=== PATIENT | female | born 1945 | race Caucasian/White ===

== ENCOUNTER 2025-03-19 13:04 | Outpatient (REF) | payer BC, MEDICAID, SELFPAY ==
--- OUTSIDE RECORDS SUMMARY | 2025-03-19 18:58 | XMS_ITS | Clinical Summary ---
Author Organization [facility] Address [address] [place] [address] Phone Care Team Providers Care Senior Information Security Engineer Name Role Phone Unavailable Primary Care Provider Unavailabl e Social History Tobacco Use Types Packs/Day Years Used Date Smoking Tobacco: Never Assessed Education Answer Date Recorded Are you interested in more education? Not on charles e 08/03/2022 Are you concerned about learning? Not on file 08/03/2022 No 08/03/2022 No 08/03/2022 Digital Access Answer Date Recorded No 09/01/2022 No 09/01/2022 No 09/01/2022 Reliable internet access at home? Not on file 09/01/2022 Device with a working camera? Not on file Comments Unknown Sex and Gender Information Value Date Recorded Sex Assigned at Not on file Legal Sex Female 5:38 PM EDT Gender Identity Not on file Sexual Orientation Not on file Plan of Treatment Health Maintenance Due Date Last Done Comments LIPID PANEL 1944 DEPRESSION SCREENING 1956 SMOKING Hx and SMOKELESS TOBACCO SCREENING 1957 ZOSTER VACCINES (1 of 2) 1994 OSTEOPOROSIS SCREENING INITIAL (ONE-TIME) 2009 RSV VACCINE (1 - 1-dose 75+ series) 07/23/2019 Adult Td,Tdap Booster 03/24/2022 03/24/2012 INFLUENZA VACCINE (#1) 2024 0, 01/27/2019, 04/15/2018, Additional history exists COVID-19 VACCINE (2 - 2024- season) 2024 07/19/2020 PNEUMOCOCCAL VACCINES (50+ years) Completed 06/20/2017, 07/26/2014 HEPATITIS A VACCINES Aged Out No long er eligible based on patient's age to complete this topic HIB VACCINES Aged Out No longer eligi ble based on patient's age to complete this topic MENINGOCOCCAL VACCINES (ACWY) Aged Out No longer eligible based on patient's age to complete this topic MENINGOCOCCAL VACCINES (B) Aged Out N o longer eligible based on patient's age to complete this topic Medical Devices Not on file Insurance MEDICARE PART A & B MEDICARE PART A & B MEDICARE PART A & B MEDICARE PART A & B MEDICARE PART A & B MEDICARE PART A & B MEDICARE PART A & B MEDICARE PART A & B MEDICARE PART A & B Additional Source Comments The information contained in this document represents components of the legal health record. It is not the complete legal health record.[facility]
== END 2025-03-19 13:05 | disposition home or self-care (01) ==
LOC: HO.HPHYSR 13:04
PROVIDERS: PCP Internal Medicine; Visit Provider Physical Medicine & Rehabilitation
DX: M53.3 Sacrococcygeal disorders, not elsewhere classified (principal); M46.1 Sacroiliitis, not elsewhere classified
CPT/HCPCS: 27096; J2003; J3301; Q9967

== ENCOUNTER 2025-03-19 13:04 | Outpatient (AMB) | payer BC, MEDICAID, SELFPAY ==
--- NOTE | 2025-03-19 13:19 | A.PHYSOV ---
Vital Signs 03/19/25 13:20 Height 5 ft 3 in Weight 188 lb BMI 33.3 BP 112/69 Pulse 60 Temp 98.2 F Intake Visit Reasons: Right Sacroiliac Joint Injection Intake Note: Patient is a 79 year old female in office today for a right sacroiliac joint injection. Supervisor Body Assembly Required: Yes Supervisor Body Assembly Services: Supervisor Body Assembly Offered & Declined Information Interpreted: non-clinical & clinical Allergies carbamazepine Allergy (Unknown, Verified 03/15/25 14:28) Unknown codeine Allergy (Unknown, Verified 03/15/25 14:28) Unknown lisinopril Allergy (Unknown, Verified 03/19/25 13:17) Unknown PFSH Medical History (Updated 03/19/25 @ 13:30 by Michi Soto DO) Sacroiliac inflammation Sacroiliac dysfunction Pacemaker Surgical History (Updated 03/19/25 @ 13:25 by Nury Omalley MA) History of coronary artery stent placement H/O cardiac ablation History of total right knee replacement (TKR) History of total left knee replacement (TKR) Hx of hysterectomy Hx of foot surgery Hx of colonoscopy Hx of cholecystectomy History of surgery Hx of left breast biopsy Family History (Updated 12/13/21 @ 17:01 by Garry Donis Damon) Mother Breast cancer Social History (Updated 03/19/25 @ 13:24 by Nury Omalley MA) Alcohol intake: current Alcohol intake frequency: holidays/special occasions only Patient Tobacco Use Status: Never used Tobacco Tobacco use type: Cigarette Use of substances other than those prescribed or required for medical reasons: No Current occupational status: retired Physical Exam Vital Signs: Last Vital Signs Temp 98.2 F 03/19/25 13:20 Pulse 60 03/19/25 13:20 BP 112/69 03/19/25 13:20 BMI result Body Mass Index 33.3 Office Procedures AMB Sacroiliac Joint Injection AMB Sacroiliac Joint Injection Procedure Details: Procedure performed: Right sacroiliac joint injection Preop diagnosis: SI joint mediated pain, sacroiliitis Postop diagnosis: The same Anesthesia: Local After informed consent was obtained patient was brought into the procedure room and placed in prone position on the procedure table. Skin over lumbar sacral area was prepped and draped in the usual sterile manner. The inferior portion of the right sacroiliac joint was visualized utilizing fluoroscopy. 3.5 in 22 gauge spinal needle was introduced percutaneously and advanced into the joint. Needle placement was verified utilizing 0.5 cc of Omnipaque contrast solution. 2.5 cc of therapeutic solution containing 40 mg of triamcinolone and 2% lidocaine was injected after negative aspiration for blood. The C-arm was obliqued about 30? in the contralateral direction an area just medial the proximal portion of the sacroiliac joint was visualized. 3.5 in 22 gauge spinal needle was introduced percutaneously and advanced to enter the area. Once in place, needle placement was identified utilizing 1 cc of Omnipaque contrast solution. Total volume of 2.5 cc containing 40 mg of triamcinolone and 2% lidocaine was injected to block the lateral branches at the sacroiliac ligament. Radiation exposure was documented in the chart. Sacroiliac Joint Injections [id number] - use with FL Gd order: Right All charges added?: Procedure code (CPT) selection complete Office Meds Kenalog 40 mg/mL suspension for injection Performing Provider: Michi Soto DO Performing Location: [facility] Administered by: Michi Soto DO on 03/19/25 13:58 Dose Route Admin Location Dispensed Lot Number Expiration Date [facility] [employer] 80 mg intra-articular 2 mL [id number] [employer] Total Dispensed Waste 2 mL 0 % lidocaine (PF) 20 mg/mL (2 %) injection solution Performing Provider: Michi Soto DO Performing Location: [facility] Administered by: Michi Soto DO on 03/19/25 13:58 Dose Route Admin Location Dispensed Lot Number Expiration Date [facility] [employer] 120 mg intra-articular 10 mL [id number] [employer] Total Dispensed Waste 10 mL 40 % Omnipaque 300 300 mg iodine/mL intravenous solution Performing Provider: Michi Soto DO Performing Location: [facility] Administered by: Michi Soto DO on 03/19/25 13:58 Dose Route Admin Location Dispensed Lot Number Expiration Date [facility] [employer] 3 mL intra-articular 10 mL [id number] [employer] Total Dispensed Waste 10 mL 70 % Assessment & Plan Assessment & Plan (1) Sacroiliac dysfunction: Code(s): M53.3 - Sacrococcygeal disorders, not elsewhere classified Category: Medical Plan: Procedure (2) Sacroiliac inflammation: Code(s): M46.1 - Sacroiliitis, not elsewhere classified Category: Medical Plan: Procedure Plan Procedure Orders: Orders FL Guided Sacroiliac Jt Inj RT Today M46.1 - Sacroiliitis, not elsewhere classified, M53.3 - Sacrococcygeal disorders, not elsewhere classified AMB Sacroiliac Joint Injection Today M46.1 - Sacroiliitis, not elsewhere classified, M53.3 - Sacrococcygeal disorders, not elsewhere classified Coding Level of Care Code Procedure Only Diagnoses Sacroiliac dysfunction M53.3 Sacroiliac inflammation M46.1 CPT Codes AMB Sacroiliac Joint Injection - Hip intraarticular Injection - : Right ([id number])
[2025-03-19 13:20] VITALS: BP 112/69; PULSE 60; TEMP 36.8; BMI 33.3
--- OUTSIDE RECORDS SUMMARY | 2025-03-19 18:43 | XMS_ITS ---
Author Name [facility] Organization Unknown Care Team Organization Name Specialty Phone Email Start Date End Da te [facility] Termed, PROVIDER Primary Care 02/13/202211/06
--- OUTSIDE RECORDS SUMMARY | 2025-03-19 18:43 | XMS_ITS | Clinical Summary ---
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 Active latanoprost (XALATAN) 0.005 % ophthalmic solution 09/19/19 22 Active levETIRAcetam (KEPPRA) 500 mg tablet Take 1.5 tablets (750 mg total) by mouth 2 (two) times a day. Take 1 Tablet by mouth 2 times daily. 03/15/20 23 Active loratadine (CLARITIN) 10 mg tablet Take 1 Tablet by mouth daily. Active spironolactone (ALDACTONE) 25 mg tablet Take 1 Tablet by mouth daily. Active dmzmbiyc-bdx-i corey-FA-vit K-lut (Centrum Silver Women) 8 mg iron-400 mcg-50 mcg tablet Take by mouth daily. Active calcium carbonate/marcos min D3 (CALCIUM 500 + D ORAL) Take 1 Tablet by mouth 2 times daily. 01/08/20 23 Active lancets 30 gauge misc Use to test blood sugar once daily. 200 each 2 02/14/20 24 Active magnesium oxide (MAG-OX) 400 mg magnesium tablet Take 1 tablet (400 mg total) by mouth 1 (one) time each day. Take 1 Tablet by mouth daily. - Oral 90 tablet 1 02/14/20 24 Active valsartan (DIOVAN) 80 mg tablet Take 1 tablet (80 mg total) by mouth 2 (two) times a day. Active OneTouch Ultra Test test strip USE TO CHECK BLOOD SUGAR ONCE DAILY 100 strip 3 07/01/19 25 Active Attruby 356 mg tablet Take 714 mg by mouth 1 (one) time each day. 08/25/19 25 Active Farxiga 10 mg tablet Take 1 mg by mouth 1 (one) time each day. Active furosemide (LASIX) 20 mg tablet Take 1 tablet (20 mg total) by mouth 1 (one) time each day if needed. Active Lactobac no.21-Bifidoba c no.9 (Probiotic [employer]) 30 billion cell capsule Take by mouth. Active inulin (Fiber Gummies) 2 gram tablet,chewabl e Chew. Active apixaban (ELIQUIS) 5 mg tablet Take 1 tablet (5 mg total) by mouth 2 (two) times a day. Take 1 Tablet by mouth 2 times daily. 180 tablet 1 08/29/19 25 Active sertraline (ZOLOFT) 50 mg tablet Take 1 tablet (50 mg total) by mouth 1 (one) time each day. TAKE 1 TABLET DAILY 90 tablet 1 09/29/19 25 Active albuterol HFA (PROAIR HFA ; PROVENTIL HFA ; VENTOLIN HFA) 90 mcg/actuation inhaler Inhale 2 puffs by mouth every 6 (six) hours if needed for wheezing or shortness of breath. 8.5 g 2 11/26/19 25 Active loperamide (Imodium A-D) 2 mg tablet Take 1 tablet (2 mg total) by mouth 3 (three) times a day if needed for diarrhea. 30 tablet 2 11/26/19 25 Active atorvastatin (LIPITOR) 40 mg tablet Take 1 tablet (40 mg total) by mouth 1 (one) time each day. TAKE 1 TABLET DAILY 90 tablet 1 11/26/19 25 Active dicyclomine (BENTYL) 10 mg capsule TAKE 1 CAPSULE (10 MG TOTAL) BY MOUTH 4 TIMES A DAY NEEDED ABDOMINAL PAIN OR CRAMPS 120 capsule 5 01/06/20 25 Active bisoprolol (ZEBETA) 5 mg tablet Take 1 tablet (5 mg total) by mouth 1 (one) time each day. Active omeprazole (PriLOSEC) [address] capsule Take 1 capsule (20 mg total) by mouth 1 (one) time each day. 90 capsule 1 01/05/20 Active semaglutide (OZEMPIC) 0.25 mg or 0.5 mg (2 mg/3 mL) injection penIndications :Type 2 diabetes mellitus with diabetic microalbuminur ia, without long-term current use of insulin ([facility] V24, [facility] V28),Obesity (BMI 30.0-34.9),AUGIE (obstructive sleep apnea) Inject 0.25 mg under the skin every 7 (seven) days. 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, without long-term current use of insulin 06/14/2024 Moderate aortic stenosis 06/14/2024 Stage 3a chronic kidney disease 06/14/2024 Hypomagnesemia 02/14/2024 Hepatic cyst 02/14/2024 Anxiety and depression 01/08/2024 GERD (gastroesophageal reflux disease) Hypertension 01/08/2024 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 05/17/2023 Palpitations 05/17/2023 Type 2 diabetes mellitus wit hout complication, without long-term current use of insulin 05/17/2023 Atrial fibrillation 06/28/2022 Chronic systolic CHF (congestive heart failure) 06/28/2022 Osteopenia 06/28/2022 Obesity (BMI 30.0-34.9) 10/21/2021 Type 2 diabetes mellitus with obesity 05/22/2021 Overview (01/06/2025): 01/06/25 Regulatory IMO Update PEDRO (generalized anxiety disorder) 05/26/2020 Mild intermittent asthma without complication Rheumatoid factor positive 03/19/2018 Prediabetes 09/04/2017 Overview (01/08/2024): Lab Results Component Value Date HGBA1C 6.4 05/27/2020 HGBA1C 6.4 07/28/2018 HGBA1C 6.1 07/02/2017 HGBA1C 6.1 03/28/2015 Coronary artery disease stat us post coronary stent insertion 12/14/2013 Overview (01/08/2024): Presented with exertional chest pain, abnormal stress test. Cath 2013 - CAD, s/p JC to mid-LAD Fibroadenoma of left breast 05/27/2012 Overview (01/08/2024): Fibroadenoma on bx ; mammo 04/2013 normal Hyperlipidemia 06/14/2010 Headache 06/13/2010 Seizure disorder 03/24/2010 LBBB (left bundle branch block) 01/16/2010 Encounters Date Type Department Care Team Description 01/04/2025 12:45 PM EDT Office Visit [address] [phone] Roe Villa MD Coronary artery disease status post coronary stent insertion (Primary Dx); Longstanding persistent atrial fibrillation (CMS/HCC V24, CMS/HCC V28); Chronic heart failure with preserved ejection fraction (HFpEF) (CMS/HCC V24, CMS/HCC V28); Cardiac amyloidosis (CMS/HCC V24, CMS/HCC V28); Moderate aortic stenosis; Mild intermittent asthma without complication; Type 2 diabetes mellitus with diabetic microalbuminuria, without long-term current use of insulin (CMS/HCC V24, CMS/HCC V28); Seizure disorder (CMS/HCC V24, CMS/HCC V28); Anxiety and depression; Irritable bowel syndrome with diarrhea; Obesity (BMI 30.0-34.9); AUGIE (obstructive sleep apnea); Screening for thyroid disorder 12/31/2024 Telephone Adult Medicine [address] [phone] Roe Villa MD from Last 3 Months Immunizations Immunization Administration Dates Next Due Influenza trivalent, 0.5mL ( Fluad) 65yo and older 01/04/2025 Influenza trivalent, 0.5mL ( Fluzone High-dose) 65yo and older 01/24/2023,01/12/2020,01/27/2019 Influenza trivalent, with pr eservative (Fluzone; Afluria) 6mo and older 02/14/2016,02/13/2015,01/11/2014,03/24,12/27/2010 Pneumococcal conjugate 13 va lent (Prevnar 13, PCV13) 2mo and older 06/20/2017 Pneumococcal conjugate 20 va lent (Prevnar 20, PCV 20) 2mo and older 02/14/2024 Pneumococcal polysaccharide 23 valent (Pneumovax 23) 2yo and older 07/26/2014 Td Tetanus diptheria (Tdvax) 7yo and older 10/17/2021,03/24/2012 Surgical History Surgery Date Site/Laterality Comments TOTAL KNEE ARTHROPLASTY 2004 Left PROCEDURE: HISTORICAL TOTAL KNEE REPLACE CHOLECYSTECTOMY PROCEDURE: HISTORICAL CHOLECYSTECTOMY FOOT SURGERY PROCEDURE: HISTORICAL FOOT SURGERY HYSTERECTOMY PROCEDURE: HISTORICAL HYSTERECTOMY OTHER SURGICAL HISTORY 2006 PROCEDURE: OR ESOPHAGOSCOPY FLEXIBLE TRANSORAL WITH BIOPSY TOTAL KNEE ARTHROPLASTY 01/2010 Right PROCEDURE: OR ARTHRP KNE CONDYLE&PLATU MEDIAL&LAT COMPARTMENTS; COMMENT: right knee COLONOSCOPY 2006 PROCEDURE: HISTORICAL COLONOSCOPY BREAST BIOPSY 2012 Left PROCEDURE: BX BREAST; PERC NEEDLE CORE W/IMAG GUID; COMMENT: b9 Medical History Medical History Date Comments Historical Medical DX DX:H/O: CV A (cardiovascular accident); COMMENT: no residual deficit Hypertension DX:Hypertension Depression DX:Depression Historical Medical DX DX:Gastric ulcer, unspecified as acute or chronic, without mention of hemorrhage or perforation GERD (gastroesophageal reflux disease) DX:GERD (gastroesophageal reflux disease) Arthritis DX:Arthritis Prediabetes 09/04/2017 DX:Prediabetes Rheumatoid factor positive 03/19/2018 DX:Rh eumatoid factor positive Family History Medical History Relation Name Comments Breast cancer Aunt m 65 Breast cancer Mother 58 Breast cancer Other Relation Name Status Comments Aunt m 65 Father HTN, Cerebral A neurysm Maternal Grandfather Alzheim er's Mother 58 Breast Ca, DM I I, HTN Other Sister Alive DM II Social History Tobacco Use Types Packs/Day Years Used Date Smoking Tobacco: Never Smokeless Tobacco: Never Alcohol Use Standard Drinks/Week Comments Yes 0 (1 standard drink = 0.6 oz pur e alcohol) Housing Instability Answer Date Recorde d Are you worried that in the next 2 months you may not have stable housing? No 08/14/2024 Food Access & Nutrition Answer Date Rec orded Do you have access to a vari ety of food including fruits and vegetables? Yes 08/14/2024 Access to Healthcare Answer Date Record ed Within the last 3 months, ho w many times did you visit the emergency department for your medical care? 1 08/14/2024 Health Literacy Answer Date Recorded How often do you need to hav e someone help you when you read instructions, pamphlets, or other written material from your doctor or pharmacy? Rarely 08/14/2024 Caregiver: How often do you need to have someone help you when you read instructions, pamphlets, or other written material from your doctor or pharmacy? Not on file 08/14/2024 Financial Risk Answer Date Recorded How hard is it for you to pa y for the very basics like food, housing, medical care, and air conditioning / heating? Not very hard 08/14/2024 Transportation Answer Date Recorded Has the lack of transportati on kept you from meetings, work, or from getting things needed for daily living? No Has the lack of transportati on kept you from medical appointments or from getting medications? No 08/14/2024 Social Isolation Answer Date Recorded How often do you feel lonely or isolated from th ose around you? Never 08/14/2024 Food Risk Answer Date Recorded Within the past 12 months we worried whether our food would run out before we got money to buy more. Never true 08/14/2024 Within the past 12 months th e food we bought just didn't last and we didn't have money to get more. Never true 08/14/2024 Dependent Care Answer Date Recorded Do you need help finding or paying for care for your loved ones. For example, children's aide or elderly care for an older adult? No 08/14/2024 Education Answer Date Recorded Do you think completing more education or training, like finishing a GED, going to college, or learning a trade, would be helpful for you? N/A 08/14/2024 Employment and Income Answer Date Recor ded During the last four weeks, have you been actively looking for work? No 08/14/2024 Living Situation Answer Date Recorded What is your living situation? Unrecognized valu e 08/14/2024 Comments No Sex and Gender Information Value Date Recorded Sex Assigned at Not on file Legal Sex Female 9:31 AM EST Gender Identity Not on file Sexual Orientation Not on file Last Filed Vital Signs Vital Sign Reading Time Taken Comments Blood Pressure 108/60 01/04/2025 12:41 PM EDT Pulse 60 01/04/2025 12:41 PM EDT Temperature 35.8 C (96.5 F) 01/04/2025 12:41 PM EDT Respiratory Rate 12 08/28/2024 9:35 AM EDT Oxygen Saturation 95% 11/25/2024 9:03 AM EDT Inhaled Oxygen Concentration - - Weight 87.5 kg (193 lb) 11/25/2024 9:03 AM EDT Height 160 cm (5' 3 ) 01/04/2025 12:41 PM EDT Body Mass Index 34.19 11/25/2024 9:03 AM EDT Plan of Treatment Upcoming Encounters Date Type Department Care Team (Late st Contact Info) Description 06/01/2025 3:45 PM EST Office Visit Adult Medicine [address] [phone] Roe Villa MD [address] [place] [address] 07/13/2025 3:40 PM EDT Appointment Radiology Department - [address] [phone] Health Maintenance Due Date Last Done Comments Diabetes: Annual Retina Eye Exam 1955 Zoster Vaccines (1 of 2) 07/23/1963 RSV Immunization Adult Patients (1 - 1-dose 75+ series) 07/23/2019 Falls Risk Assessment 03/17/2022 Medicare Annual Wellness Visit 03/17/2022 Diabetes: Annual Foot Exam 03/15/2024 03/15/2023 Depression Screening 04/08/2024 COVID-19 Vaccine ( season) 2024 04/20/2021, 07/19/2020, 06/27/2020 Diabetes: Annual Urine Albumin-Creatinine Ratio (uACR) 12/18/2024 12/19/2023 Diabetes: Blood Sugar Control Test (HGBA1C) 06/10/2025 12/11/2024, 06/15/2024, 12/19/2023, Additional history exists Social Influencers of Health Screening 08/14/2025 08/14/2024 Diabetes: Annual GFR (Glomerular Filtration Rate) 12/11/2025 12/11/2024, 06/15/2024, 12/19/2023, Additional history exists Hypertension/CHF/CAD Annual BMP Blood Test 12/11/2025 12/11/2024, 06/15/2024, 12/19/2023, Additional history exists Cholesterol Screening (Lipid Panel) 12/11/2029 12/11/2024, 05/23/2023 DTaP,Tdap,and Td Vaccines (4 - Td or Tdap) 10/18/2031 10/17/2021, 03/24/2012, 06/21/2006 Osteoporosis Screening (Bone Density Screening) 02/20/2034 02/21/2024, 10/03/2016 Pneumococcal Vaccine: 50+ Years Completed 02/14/2024, 06/20/2017, 06/20/2017, Additional history exists Influenza Vaccine Completed 01/04/2025, , 04/20/2021, Additional history exists HIB Vaccines Aged Out No longer eligi ble based on patient's age to complete this topic HPV Vaccines Aged Out No longer eligi ble based on patient's age to complete this topic Hepatitis A Vaccines Aged Out No long er eligible based on patient's age to complete this topic Hepatitis B Vaccines Aged Out No long er eligible based on patient's age to complete this topic IPV Vaccines Aged Out No longer eligi ble based on patient's age to complete this topic MMR Vaccines Aged Out No longer eligi ble based on patient's age to complete this topic Meningococcal ACWY Vaccine Aged Out N o longer eligible based on patient's age to complete this topic Meningococcal B Vaccine Aged Out No l onger eligible based on patient's age to complete this topic RSV Immunization Patients Under 20 months Aged Out No longer eligible based on patient's age to complete this topic Varicella Vaccines Aged Out No longer eligible based on patient's age to complete this topic Procedures Procedure Name Priority Date/Time Associated Diagnosis Comments COMPREHENSIVE METABOLIC PANEL Routine 12/11/2024 4:39 PM EDT Hospital discharge follow-up Other chest pain S/P cardiac cath CAD S/P percutaneous coronary angioplasty Longstanding persistent atrial fibrillation ([facility] V24, [facility] V28) History of electrophysiologic study Chronic heart failure with preserved ejection fraction (CMS/HCC V24, CMS/[facility] V28) Moderate aortic stenosis Type 2 diabetes mellitus with diabetic microalbuminuria, without long-term current use of insulin ([facility] V24, [facility] V28) Seizure disorder ([facility] V24, [facility] V28) Anxiety and depression HEMOGLOBIN A1C Routine 12/11/2024 4:39 PM EDT Hospital discharge follow-up Other chest pain S/P cardiac cath CAD S/P percutaneous coronary angioplasty Longstanding persistent atrial fibrillation ([facility] V24, [facility] V28) History of electrophysiologic study Chronic heart failure with preserved ejection fraction (CMS/[facility] V24, CMS/[facility] V28) Moderate aortic stenosis Type 2 diabetes mellitus with diabetic microalbuminuria, without long-term current use of insulin ([facility] V24, [facility] V28) Seizure disorder (CMS/[facility] V24, CMS/[facility] V28) Anxiety and depression LIPID PANEL WITH REFLEX TO DIRECT LDL Routine 12/11/2024 4:39 PM EDT Hospital discharge follow-up Other chest pain S/P cardiac cath CAD S/P percutaneous coronary angioplasty Longstanding persistent atrial fibrillation ([facility]/HCC V24, [facility] V28) History of electrophysiologic study Chronic heart failure with preserved ejection fraction ([facility] V24, CMS/[facility] V28) Moderate aortic stenosis Type 2 diabetes mellitus with diabetic microalbuminuria, without long-term current use of insulin ([facility] V24, [facility] V28) Seizure disorder ([facility] V24, CMS/[facility] V28) Anxiety and depression BD BONE DENSITY DXA AXIAL SKELETON Routine 02/21/2024 11:24 AM EST Encounter for screening for osteoporosis URINE ALBUMIN CREATININE RATIO Routine 12/19/2023 DIABETES FOOT EXAM Routine 03/15/2023 from Last 3 Months or Most Recently Relevant to Health Maintenance Results * (ABNORMAL) Lipid panel with reflex to direct LDL (12/11/2024 4:39 PM EDT) Cholesterol 132 0 - 200 mg/dL LAB CHEMISTRY METHOD 12/11/2024 8:11 PM EDT [facility] Triglycerides 210(H) 0 - 150 mg/dL LAB CHEMISTRY METHOD 12/11/2024 8:11 PM EDT [facility] HDL 52 >=40 mg/dL LAB CHEMISTRY METHOD 12/11/2024 8:11 PM EDT [facility] LDL Calculated 38 0 - 100 mg/dL LAB CHEMISTRY METHOD 12/11/2024 8:11 PM EDT [facility] Comment:Estimated LDL Calcul ated using equation: Total cholesterol - HDL cholesterol - (Triglycerides/5) VLDL Cholesterol [place] 42 mg/dL LAB CHEMISTRY METHOD 12/11/2024 8:11 PM EDT [facility] Non HDL Chol. (LDL+VLDL) 80 <145 mg/dL LAB CHEMISTRY METHOD 12/11/2024 8:11 PM EDT [facility] Chol/HDL Ratio 2.5 0.0 - 4.4 LAB CHEMISTRY METHOD 12/11/2024 8:11 PM EDT [facility] Blood Venous blood specimen / Unknown Venipuncture / Unknown 12/11/2024 4:39 PM EDT 12/11/2024 4:39 PM EDT us Roe Villa MD LAB BLOOD ORDERABLES Final Result [facility] [address] [place] [address], [place] [phone] * (ABNORMAL) Hemoglobin A1c (12/11/2024 4:39 PM EDT) Hemoglobin A1C 7.4(H) <6.5 % LAB CHEMISTRY METHOD 12/12/2024 1:04 PM EDT [facility] Mean Bld Glu Estim. 166 mg/dL LAB CHEMISTRY METHOD 12/12/2024 1:04 PM EDT [facility] Blood Venous blood specimen / Unknown Venipuncture / Unknown 12/11/2024 4:39 PM EDT 12/11/2024 4:39 PM EDT Roe Villa MD LAB BLOOD ORDERABLES Final Result [facility] [address] [place] [address], * (ABNORMAL) Comprehensive metabolic panel (12/11/2024 4:39 PM EDT) Pathologist [facility] Sodium 135 133 - 145 mmol/L LAB CHEMISTRY METHOD 12/11/2024 8:[address] [facility] Potassium 4.8 3.5 - 5.5 mmol/L LAB CHEMISTRY METHOD 12/11/2024 8:[address] [facility] Chloride 104 96 - 110 mmol/L LAB CHEMISTRY METHOD 12/11/2024 8:[address] [facility] CO2 29 21 - 32 mmol/L LAB CHEMISTRY METHOD 12/11/2024 8:[address] [facility] Anion Gap 2(L) 3 - 11 LAB CHEMISTRY METHOD 12/11/2024 8:[address] [facility] Glucose 135(H) 70 - 100 mg/dL LAB CHEMISTRY METHOD 12/11/2024 8:[address] [facility] BUN 22 5 - 25 mg/dL LAB CHEMISTRY METHOD 12/11/2024 8:[address] [facility] Creatinine 1.40(H) 0.50 - 1.10 mg/dL LAB CHEMISTRY METHOD 12/11/2024 8:[address] [facility] eGFR 38(L) >=60 mL/min/1. 73m2 LAB CHEMISTRY METHOD 12/11/2024 8:[address] [facility] Comment:Calculation based on the Chronic Kidney Disease Epidemiology Collaboration (CKD-EPI) equation refit without adjustment for race. BUN/Creatinine Ratio 15.7 LAB CHEMISTRY METHOD 12/11/2024 8:[address] [facility] Calcium 9.7 8.5 - 10.5 mg/dL LAB CHEMISTRY METHOD 12/11/2024 8:[address] [facility] AST (SGOT) 28 10 - 42 unit/L LAB CHEMISTRY METHOD 12/11/2024 8:[address] [facility] ALT (SGPT) 38 10 - 60 unit/L LAB CHEMISTRY METHOD 12/11/2024 8:[address] [facility] Alkaline Phosphatase 101 42 - 121 unit/L LAB CHEMISTRY METHOD 12/11/2024 8:[address] [facility] Total Protein 7.3 6.0 - 8.0 g/dL LAB CHEMISTRY METHOD 12/11/2024 8:[address] [facility] Albumin 4.1 3.2 - 5.0 g/dL LAB CHEMISTRY METHOD 12/11/2024 8:[address] [facility] Total Bilirubin 0.5 0.0 - 1.4 mg/dL LAB CHEMISTRY METHOD 12/11/2024 8:[address] [facility] Blood Venous blood specimen / Unknown Venipuncture / Unknown 12/11/2024 4:39 PM EDT 12/11/2024 4:39 PM EDT Roe Villa MD LAB BLOOD ORDERABLES Final Result [facility] [address] [place] [address], * BD Bone Density DXA Axial Skeleton (02/21/2024 11:24 AM EST) Anatomical Region Laterality Modality Wrist, Hip, L-spine Bone Densito metry 02/24/2024 9:23 PM EST Impressions 02/24/2024 9:26 PM EST Osteopenia. The NOF guidelines recommend that FDA approved medical therapies be considered in postmenopausal women and men age >50 years with a: i. Hip or vertebral (clinical or morphometric) fracture ii. T score of < -2.5 at the spine or hip iii. 10 year fracture probability by FRAX of >3% for hip fracture, or >20% for major osteoporotic fracture PLEASE NOTE: W.H.O. classification is based on lowest measured density at the spine, femoral neck, or total hip.This classification has prognostic significance when applied to post menopausal women and older men. 1) The World Health Organization defines low BMD as follows: T-score Normal at or > -1 Osteopenia < -1 and > -2.5 Osteoporosis at or < -2.5 without fractures Established osteoporosis < -2.5 with fractures -------- FINAL REPORT -------- Dictated By: Becky Reyes Dictated Date: 02/24/2024 21:23 ET Assigned Physician: Becky Reyes Reviewed and Electronically Signed By: Becky Reyes Signed Date: 02/24/2024 21:26 ET Workstation ID: [id number] Transcribed By: Self Edit Transcribed Date: 02/24/2024 21:23 ET Narrative 02/24/2024 9:26 PM EST Clinical history: Z13.820 Scans of the lumbar spine and hips were performed on a [employer] fan beam bone densitometer. Bone mineral density measurements and associated T and Z scores respectively are as follows: Lumbar Spine: L1-L4 BMD: 1.058 g/cm2 T-Score: 0.1 Z-Score: 2.8 Compared with the prior study dated 09/25/2016, the BMD reading has decreased which is not statistically significant Left Proximal Femur: Neck BMD: 0.622 g/cm2 T-Score: -2.0 Z-Score: 0.2 Total BMD: 0.834 g/cm2 T-Score: -0.9 Z-Score: 1.2 Compared with the prior study the mean BMD reading in the total left hip has decreased which is not statistically significant Compared with standards for the young adult, lowest measured bone density places the patient in the W.H.O. osteopenic range. FRAX 10 year probability of major osteoporotic fracture: 21% FRAX 10 year probability of hip fracture: 5.4% Population: [place] () Procedure Note Becky Reyes MD - 02/24/2024 Clinical history: Z13.820 Scans of the lumbar spine and hips were performed on a [employer] beam bone densitometer. Bone mineral density measurements and associated T and Z scoresrespectively are as follows: Lumbar Spine: L1-L4 BMD: 1.058 g/cm2 T-Score: 0.1 Z-Score: 2.8 Compared with the prior study dated 09/25/2016, the BMD reading hasdecreased which is not statistically significant Left Proximal Femur: Neck BMD: 0.622 g/cm2 T-Score: -2.0 Z-Score: 0.2 Total BMD: 0.834 g/cm2 T-Score: -0.9 Z-Score: 1.2 Compared with the prior study the mean BMD reading in the total left hiphas decreased which is not statistically significant Compared with standards for the young adult, lowest measured bone densityplaces the patient in the W.H.O. osteopenic range. FRAX 10 year probability of major osteoporotic fracture: 21% FRAX 10 year probability of hip fracture: 5.4% Population: [place] () IMPRESSION: Osteopenia. The NOF guidelines recommend that FDA approved medical therapies beconsidered in postmenopausal women and men age >50 years with a: i. Hip or vertebral (clinical or morphometric) fracture ii. T score of < -2.5 at the spine or hip iii. 10 year fracture probability by FRAX of >3% for hip fracture, or >20%for major osteoporotic fracture PLEASE NOTE: W.H.O. classification is based on lowest measured density at the spine,femoral neck, or total hip.This classification has prognostic significancewhen applied to post menopausal women and older men. 1) The World Health Organization defines low BMD as follows: T-score Normal at or > -1 Osteopenia < -1 and > -2.5 Osteoporosis at or < -2.5 withoutfractures Established osteoporosis < -2.5 with fractures -------- FINAL REPORT -------- Dictated By: Becky Reyes Dictated Date: 02/24/2024 21:23 ET Assigned Physician: Becky Reyes Reviewed and Electronically Signed By: Bceky Reyes Signed Date: 02/24/2024 21:26 ET Workstation ID: [id number] Transcribed By: Self Edit Transcribed Date: 02/24/2024 21:23 ET Roe Villa MD IMG DXA PROCEDURES Final Re sult * Urine Albumin Creatinine Ratio (12/19/2023) Pathologist [facility] Urine Albumin Creatinine Ratio Abstracted Historical Provider HEALTH MAINTENANCE Final Result * Diabetes Foot Exam (03/15/2023) [facility] Diabetes: Annual Foot Exam Abstracted Historical Provider HEALTH MAINTENANCE Final Result from Last 3 Months or Most Recently Relevant to Health Maintenance [place] Care Teams 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
--- OUTSIDE RECORDS SUMMARY | 2025-03-19 18:43 | XMS_ITS | Encounter Summary ---
Author Organization [facility] Address [address] [place] [address] Care Team Providers Care Oil Rag Washer Name Role Phone Roe Villa MD Primary Care Provider [phone] Encounter Details Date Type Department Care Team (Late st Contact Info) Description 08/14/2024 Referral Triage [facility] [address] [place] [address] Kim Lowe Social History Tobacco Use Types Packs/Day Years [...] care for your loved ones. 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 [...] on file Sexual Orientation Not on file documented as of this encounter Plan of Treatment Upcoming Encounters Date Type Department Care Team (Late st Contact Info) Description 06/01/2025 3:45 PM EST Office Visit Adult Medicine [address] [phone] Roe Villa MD [address] [place] [address] 07/13/2025 3:40 PM EDT Appointment Radiology Department - [address] [place] [address] documented as of this encounter Visit Diagnoses Not on filedocumented in this encounter Additional Health Concerns Infection Onset Date Last Indicated Resolved Time Gastrointestinal Rule-Out 12/11/2024 12/11/2024 8:12 PM EDT documented as of this encounter Care Teams Oil Rag Washer Relationship Specialty Start Date End Date Roe Villa MD [address] [place] [address] PCP - General Internal Medicine 10/17/21 documented as of this encounter
== END 2025-03-19 14:12 | disposition home or self-care (01) ==
LOC: HO.HPHYS 13:05
PROVIDERS: PCP Internal Medicine; Visit Provider Physical Medicine & Rehabilitation
DX: M53.3 Sacrococcygeal disorders, not elsewhere classified (principal); M46.1 Sacroiliitis, not elsewhere classified
CPT/HCPCS: 27096